=== PATIENT | female | born 1995 | race Caucasian/White ===

== ENCOUNTER 2018-01-28 06:18 | Day surgery (SDC) | payer OTHER ==
[2018-01-26 17:02] LABS: Absolute Monocytes 0.4 K/uL (0.1-1.3); Absolute Neutrophil 4.6 K/uL (1.8-8.0); Basophils % 0.5 % (0-1.3); Eosinophils % 1.5 % (0-4.4); Lymphocytes % 27.9 % (15.3-44.8); MCH 33.1 pg (27.0-35.0); MCV 97.3 fL (80-100); MPV 8.6 fL (7.6-11.3); Monocytes % 5.9 % (3.3-12.3); RBC Red Blood Cell Count 4.01 M/uL (3.86-4.86)
[~2018-01-28 06:18] MED LIST: FENTANYL CITR 100 MCG/2 ML ONE; LIDOCAINE 2% MPF 5 ML VIAL ONE; MIDAZOLAM HCL 2 MG/2 ML INJ ONE; PROPOFOL 200 MG/20 ML VIAL IV ONE
[2018-01-28 06:36] LABS: Specific Gravity 1.025 (1.005-1.030)
[2018-01-28] MEDS ORDERED: Ringers Lactate 1,000 ML IV ONE (06:54)
[2018-01-28] MEDS ORDERED: CEFAZOLIN/SWI 1gm 1 GM/10 ML SYR ONE (06:55)
[2018-01-28] MEDS ORDERED: BUPIVACAINE 0.25% PF 10 ML VIAL ONE (07:08)
[2018-01-28] MEDS ORDERED: BUPIVACAINE 0.5% PF 10 ML VIAL ONE (07:33)
[2018-01-28] MEDS ORDERED: FENTANYL CITR 100 MCG/2 ML ONE (07:34)
[2018-01-28] MEDS ORDERED: MIDAZOLAM HCL 2 MG/2 ML INJ ONE (07:35)
[2018-01-28] MEDS ORDERED: PROPOFOL 200 MG/20 ML VIAL IV ONE (07:35)
[2018-01-28] MEDS ORDERED: LIDOCAINE 2% MPF 5 ML VIAL ONE (07:35)
[2018-01-28] MEDS ORDERED: ONDANSETRON 4 MG/2 ML VIAL ONE (08:02)
[2018-01-28] MEDS ORDERED: PROMETHAZINE 25 MG/ML VIAL ONE (08:27)
[2018-01-28 10:12] VITALS: BP 110/68; TEMP 98.2; O2SAT 100
--- NOTE | 2018-01-28 14:22 | OP ---
Date of Procedure: 01/28/2018 Surgeon: Ric Day MD Preoperative Diagnosis: Right groin abscess. Postoperative Diagnosis: Right groin abscess. Procedure: Incision, drainage, and debridement of right groin abscess. Estimated Blood Loss: Minimal. Specimen: Pus. Finding: As above. Anesthesia: General. Complications: None. Disposition: The patient tolerated the procedure in stable condition, taken to Recovery in good gene ral condition. Operative Note: The patient was brought to the OR and placed in supine position. General anesthesia was begun. The patient placed in the frog-leg position. Prepped and draped in the usual sterile fa shion. Marcaine 0.5% was infiltrated locally. A 15-blade was used to make approximately a 3 cm inci judith. Subcutaneous tissue divided. Purulence evacuated. Cultures done. Wound irrigated. Bleeding controlled with cautery. Necrotic tissue debrided. Wound packed with wet-to-dry normal saline dres sing change. The patient tolerated the procedure in stable condition and taken to Recovery in good general condition. ANTE/MONSE Voice ID: [id number] Report ID: [id number]
--- NOTE | 2018-01-28 14:22 | DS ---
Date of Discharge: 01/28/2018 Discharge Note: The patient will go to Day Surgery and home when stable. Disposition: Home. Condition: Stable. Discharge Instructions: Resume home medicine and diet. Activity as tolerated. No heavy lifting. R emove outer dressing in a.m. Shower. Wet-to-dry normal saline dressing changes daily. Tylenol No. 3 1 tablet p.o. q.4 p.r.n. pain. Bactrim DS 1 tablet p.o. b.i.d. Follow up in my office in 2 weeks. Call for appointment. NATE/MONSE Voice ID: [id number] Report ID: [id number]
== END 2018-01-28 09:30 | disposition home or self-care (01) ==
LOC: OR 06:18
PROVIDERS: ATTEND Surgery
PROC: 0J9C0ZZ Drainage of Pelvic Region Subcutaneous Tissue and Fascia, Open Approach (ICD-10-PCS; principal; 2018-01-28 07:30)
DX: L02.214 Cutaneous abscess of groin (principal)
CPT/HCPCS: 36415; 81025; 85025; 87070; 87075; 87205; J0690; J2250; J2405; J2550; J2704; J3010

== ENCOUNTER 2018-10-19 17:26 | Inpatient (IN) | payer OTHER ==
[2018-10-19] MEDS ORDERED: Ringers Lactate 1,000 ML IV PRN (17:42)
[2018-10-19] MEDS ORDERED: PROMETHAZINE 25 MG/ML VIAL IV PRN (17:42)
[2018-10-19] MEDS ORDERED: BUTORPHANOL 1 MG/ML INJ IV ONE (17:46)
[2018-10-19] MEDS ORDERED: miSOPROStol 100 MCG TAB VAG PRN (17:53)
[2018-10-19] MEDS: Ringers Lactate 1,000 ML IV SCH (18:00)
[2018-10-19] MEDS ORDERED: OXYTOCIN/LR 20 UNIT/1,000 ML BAG IV SCH (18:00)
--- OUTSIDE RECORDS SUMMARY | 2018-10-19 18:11 | XMS REPORT ---
:1995 [facility] Address [address] [place] [address] Dr. Castillo [address] [place] [id number] Care Team Providers Name Role Phone Unavailable Unavailable Unavailable Problems This patient has no known problems. Allergies, Adverse Reactions, Alerts This patient has no known allergies or adverse reactions. Medications This patient has no known medications.
[2018-10-19 18:25] LABS: RPR Titer ND
[2018-10-19 18:29] LABS: Absolute Lymphocytes (CBC) 1.4 K/uL (0.7-4.9); Basophils % 0.2 % (0-1.3); Eosinophils % 1.3 % (0-4.4); Hematocrit 38.8 % (36.0-45.0); MPV 11.1 fL (7.6-11.3); Monocytes % 8.1 % (3.3-12.3)
--- NOTE | 2018-10-19 18:44 | P.PN ---
Date of Service: 10/19/18 Cx 1+ cm, vtx minus 2station. FSE attempted, AROM but electrode not able to be attached. Will start pitocin in place of misoprostel. Plan explained to patient and partner.
[2018-10-19 19:15] LABS: Urine Appearance CLEAR; Urine Bilirubin NEGATIVE (NEG); Urine Blood NEGATIVE (NEG); Urine Color YELLOW; Urine Glucose 1+ (NEG); Urine Protein NEGATIVE (NEG); Urine Specific Gravity >=1.030 (1.005-1.030); Urine Urobilinogen 0.2 mg/dL (0.2-1.0); Urine pH 5.5 (5.0-7.0)
[2018-10-19 19:17] LABS: Urine Microscopic Reflex NO UMIC
[2018-10-19] MEDS ORDERED: ROPIVACAINE HCL 100 ML IV ONE ×2 (20:48→21:39)
[2018-10-19] MEDS ORDERED: ROPIVACAINE HCL 0.2% 20ML AMP IV ONE (20:53)
[2018-10-19] MEDS ORDERED: FENTANYL CITR 100 MCG/2 ML IV ONE (20:54)
[2018-10-19] MEDS ORDERED: ROPIVACAINE HCL 20 ML ONE (21:39)
[2018-10-19] MEDS ORDERED: ACETAMINOPHEN 500 MG TAB PO PRN (23:00)
[2018-10-19] MEDS ORDERED: METHYLERGONOVINE 0.2MG/ML AMP IM PRN (23:00)
[2018-10-19] MEDS ORDERED: ONDANSETRON 4 MG (ODT) TAB PO PRN (23:00)
[2018-10-19] MEDS ORDERED: CARBOPROST TROME 250 MCG/ML IM PRN (23:00)
[2018-10-19] MEDS ORDERED: METHYLERGONOVINE 0.2 MG TAB PO PRN (23:00)
--- NOTE | 2018-10-19 23:06 | P.BOP ---
Preoperative diagnosis: 40+wk Postoperative diagnosis: same, delivery viable female infant Primary procedure: induction of labor, SCVD viable infant Estimated blood loss: 250ml Specimen: none Findings: CAN X1 Anesthesia: epidural Complications: None Transferred to: Other ([id number]) Condition: Good
[2018-10-20] MEDS: IBUPROFEN 200 MG TAB PO PRN ×3 (02:35→19:35)
[2018-10-20 04:03] LABS: RPR (Rapid Plasma Reagin) NON-REACT (NON-REACT)
[2018-10-20] MEDS: OXYTOCIN/LR 20 UNIT/1,000 ML BAG IV SCH ×2 (07:00→14:33)
[2018-10-20] MEDS: Ringers Lactate 1,000 ML IV SCH ×2 (07:20→14:00)
--- NOTE | 2018-10-20 07:29 | P.PN ---
Date of Service: 10/20/18 S-No complaints O-Afeb, vs stable, 34.6 pp hct. cord blood + so will receive rhogam. A-Satisfactory P-Home tomorrow am if all well.
[2018-10-20] MEDS ORDERED: Rho(D) IG (HUMAN) 300 MCG SYR IM ONE (08:20)
--- NOTE | 2018-10-20 09:08 | PREOPHP ---
Date of Admission: 10/19/2018 History Of Present Illness: Ms. Putnam is a 23-year-old , female, 2, para 1-0-0-1, now at approximately 40+ weeks gestation. She will be admitted for induction of labor seco ndary to post-date . She has been followed by me during this without significant complications other than history of irregular menses with ultrasound established an EDC of 10/16. Rh negative blood type and anemia. Past Medical History: Please see record. Family History: Please see record. Review of Systems: She reports no recent cough, cold, fever, or chills. No recent nausea or vomiting. She denies any b reast lumps or breast knots. She denies any bowel or bladder issues. Infant has been active. Physical Examination: General: Reveals female in no apparent distress. Neck: Supple without adenopathy or thyromegaly. Lungs: Clear. Cardiac: Regular rate and rhythm without murmurs. Breasts: Not examined. Abdomen: Estimated weight of 7+ pounds. Pelvic: Cervix, extremely posterior to spec, 75% effaced, vertex presentation, fingertip. Extremities: No cyanosis, clubbing, or edema. Impression: 40+ week , Rh negative blood type. Plan: We will induce with misoprostol this evening, 25 mg q.4 hours. REVA/MONSE Voice ID: [id number]
--- NOTE | 2018-10-21 08:18 | DS ---
Final Hospital Discharge Diagnosis: 40 plus week delivered. Complications: None. Procedures: Artificial rupture of membranes, Pitocin induction of labor, placement of epidural lamberto ter, spontaneous controlled vaginal delivery of viable female infant. Hospital Course: The patient is a 23-year-old female, 2, para 1-0-0-1, at 40 plus weeks gestation, admitted for induction of labor secondary to postdate . She delivered 8 po unds 3-ounce female infant, 9 and 9 with epidural anesthesia. She was dismissed on the first p ostpartum day, ambulatory, on a select diet with routine postvaginal delivery activity restrictions, to be seen back in the office in 1 week and 6 weeks. Because she is Rh negative blood work, she rece ived RhoGAM because cord blood was positive. Lab included an admission hemoglobin and hematocrit of 13.0 and 38.8, on dismissal at 34.6. She had a negative urinalysis. RPR was negative. She was dism issed to continue taking her iron and vitamins with usual postvaginal delivery activity rest rictions. REVA/MONSE Voice ID: [id number] Report ID: [id number]
--- NOTE | 2018-10-21 08:18 | DN ---
Surgeon: Kapil Samuel MD Irma is 23-year-old female, 2, para 1-0-0-1, at 40 plus weeks gestation, schedu led for misoprostol induction of labor. However, prior to placement of misoprostol, she was noted to be 1+ to 2 cm dilated. Because of this, Pitocin induction of labor was begun. Artificial rupture o f membranes was performed by attempted placement of scalp electrode. Mild meconium staining of the fluid was noted. Pitocin was begun. She had a first stage of labor of approximately 3 hours an d 50 minutes, second stage of labor of approximately 40 minutes. She delivered by spontaneous contro lled vaginal delivery, an 8 pounds 3-ounce female infant, 8 and 9. Cord around the neck x1 was noted at the time of delivery. Infant was delivered. The cord was clamped after milking the cord t oward the cut and the placed on mother's upper abdomen. Cord blood was obtained. Plac enta was manually removed after cord with gentle traction. Intrauterine exam revealed no r etained tissue. The patient suffered no lacerations. Estimated total blood loss was approximately 2 50 cc. The patient had received epidural anesthesia with good effect and tolerated all procedures we ll. REVA/MONSE Voice ID: [id number] Report ID: [id number]
[2018-10-21 08:32] VITALS: BP 106/58; TEMP 98
[2018-10-21] MEDS: IBUPROFEN 200 MG TAB PO PRN (09:30)
[2018-10-22 20:18] LABS: HBsAG Nonreactive (Nonreactive)
== END 2018-10-21 10:15 | disposition home or self-care (01) | DRG 807 ==
LOC: 2ND-WC 17:26
PROVIDERS: ADMIT Specialist; ATTEND Specialist
PROC: 10E0XZZ Delivery of Products of Conception, External Approach (ICD-10-PCS; principal; 2018-10-21)
PROC: 3E033VJ Introduction of Other Hormone into Peripheral Vein, Percutaneous Approach (ICD-10-PCS; 2018-10-21)
DX: O48.0 Post-term pregnancy (principal); Z37.0 Single live birth; O26.893 Other specified pregnancy related conditions, third trimester; Z67.91 Unspecified blood type, Rh negative; Z3A.40 40 weeks gestation of pregnancy; O69.81X0 Labor and delivery complicated by cord around neck, without compression, not applicable or unspecified; O77.0 Labor and delivery complicated by meconium in amniotic fluid
CPT/HCPCS: 36415; 81003; 85014; 85025; 85461; 86592; 86850; 86901; 87340; J0595; J2550; J2590; J2790; J2795; J3010